=== PATIENT | male | born 1995 | race Caucasian/White ===

== ENCOUNTER 2018-04-26 20:27 | Emergency (ER) | payer BC, SELFPAY ==
[2018-04-26 20:32] VITALS: BP 133/74; PULSE 88; RESP 16; TEMP 37.1; O2SAT 98
--- NOTE | 2018-04-26 20:35 | DI.RAD_ITS ---
SYMPTOM/DIAGNOSIS: MID TIBIA PAIN, FELL, TRAUMA LEFT TIB-FIB: Two views. No bone or joint abnormality is identified. The soft tissues are unremarkable. IMPRESSION: No acute abnormality.
--- NOTE | 2018-04-26 20:45 | ED.GENADUL_ITS ---
Discharge Plan Disposition Patient Disposition: HOME Condition: Good Discharge Details Chief Complaint: Laceration Clinical Impression: Leg wound, left, Blunt trauma of left lower leg ED Provider: Micah Guadalupe Home Meds and New Rx's Prescriptions: No Action No Known Home Meds RF: 0 Discharge Instructions Additional Instructions: keep the wound clean, twice a day or if it becomes dirty gently clean with soap and water if you have redness spreading up or down the leg or yellow/white discharge return to the emergency department. Have the sutures removed in 10 days, return to the emergency department for this Medical Decision Making 22 male fell and hit his left tibia anterior on a corner of a trailer, no head trauma, loc, vomit. Has puncture wound about 0.5cm to mid anterior tibia. Full rom of the knee and ankle and is bearing weight. Will xray to eval for fx and likely suture close if negative xray negative on my read, clsoed with 4 sutures and advised to return in 10 days for removal and sooner if signs of infection develop. will d/c if vrad also agress no acute findings Differential Diagnosis lac, fracture Imaging Data Radiologic Study: Attestation: I personally reviewed and interpreted this imaging study as follows: Imaging: X-Ray My impression: no acute findings HPI General Mode of arrival: ambulatory . Date/Time Provider Initiated Documentation: 04/26/18 20:35 . Limitations to Documentation: no limitations . Information obtained by: patient . History of Present Illness 22 year old M presents to the emergency department with the chief complaint of left leg laceration, described as mild, with intensity rated at 3. and is localized to the left and lower extremity. Patient reports no radiation. Patient started experiencing this hour(s) (1) and it has been constant. No relieving factors improve symptom(s), No exacerbating factors reported . Patient notes no other symptoms.. Patient did receive the following treatments prior to arrival, none Related Data Home Medications Medication Instructions Recorded Confirmed Unknown [No Known Home Meds] 04/26/18 04/26/18 Allergies Allergy/AdvReac Type Severity Reaction Status Date / Time No Known Allergies Allergy Unverified 04/26/18 20:39 General Stated Complaint: Laceration MELO: 4 Review of Systems Review of Systems All systems reviewed & are unremarkable except as noted in HPI and below Constitutional Denies chills, Denies fever(s) and Denies weakness Cardiovascular Denies chest pain and Denies dyspnea Respiratory Denies dyspnea Gastrointestinal Denies abdominal pain, Denies nausea and Denies vomiting Musculoskeletal Denies joint swelling Neurologic Denies weakness Exam Const General: no acute distress Orientation: alert HENMT Head: normal to inspection Ears: external ears normal General nose exam: external nose normal Mouth: moist mucous membranes Eyes General: appearance normal, both eyes and all related structures Neck Neck: normal visual inspection Resp Effort & Inspection: normal respiratory effort and able to speak in complete sentences Cardio Rate: regular rate Skin General skin exam: no rashes or lesions noted Neuro General: alert and oriented x3 Extrem General: full ROM Psych Mental Status: mental status grossly normal Course Vital Signs Temperature 37.1 C 04/26/18 20:32 Pulse 88 04/26/18 20:32 Respiratory Rate 16 04/26/18 20:32 Blood Pressure 133/74 04/26/18 20:32 Pulse Oximetry 98 04/26/18 20:32 Temperature 37.1 C 04/26/18 20:32 Temperature Source Skin 04/26/18 20:32 Pulse 88 04/26/18 20:32 Respiratory Rate 16 04/26/18 20:32 Respiratory Effort 04/26/18 20:38 Blood Pressure 133/74 04/26/18 20:32 Blood Pressure Position Sitting 04/26/18 20:32 Pulse Oximetry 98 04/26/18 20:32 Oxygen Delivery Method Room Air 04/26/18 20:32 Oxygen Flow Rate 0 04/26/18 20:32 Pain Level 3 04/26/18 20:32 Procedures Laceration Laceration 1: Site: lower extremity Side (If applicable): left Size (cm): 0.5 Description: linear Depth: simple, single layer Local Anesthetic: Lidocaine 1% Amount of anesthesia used (mL): 5 Pre-repair: wound explored and irrigated extensively Skin layer closed with: nylon Size (cm): 4-0 Number of sutures: 4 Technique: simple, interrupted
--- NOTE | 2018-04-26 21:25 | DI.VRAD_ITS ---
EXAM: XR Left Tibia and Fibula, 2 Views EXAM DATE/TIME: 04/26/2018 8:36 PM CLINICAL HISTORY: 22 years old, male; Signs and symptoms; Other: Fall, trauma to mid anterior left tib/fib TECHNIQUE: XR Left tibia and fibula 2 views COMPARISON: No relevant prior studies available. FINDINGS: Bones/joints: Two views of the left foreleg reveal no acute fracture or dislocation. The tibia and fibula appear intact. Soft tissues: No gross focal soft tissue swelling is demonstrated. IMPRESSION: No acute fracture or dislocation seen in the left foreleg. Dictated and Authenticated by: Nimesh Cristobal MD. Ordering:BENTON PRINCE MD
[2018-04-26 21:31] VITALS: BP 133/74; PULSE 88; RESP 16; TEMP 37.1; O2SAT 98
== END 2018-04-26 21:29 | disposition home or self-care (01) ==
PROVIDERS: Emergency Provider Emergency Medicine
DX: S81.832A Puncture wound without foreign body, left lower leg, initial encounter (principal); W22.8XXA Striking against or struck by other objects, initial encounter
CPT/HCPCS: 12001; 73590

== ENCOUNTER 2018-11-14 06:17 | Emergency (ER) | payer BC, SELFPAY ==
[2018-11-14 06:21] VITALS: BP 118/64; PULSE 74; RESP 18; TEMP 36.3; O2SAT 98
--- NOTE | 2018-11-14 06:30 | ED.GENADUL_ITS ---
Discharge Plan Disposition Patient Disposition: HOME Condition: Good Discharge Details Chief Complaint: EarProblem Clinical Impression: Otitis externa of both ears Primary Care Provider: Barbara,Local ED Provider: Nikolai Dorantes Meds and New Rx's Prescriptions: New qwchnjyd-jehvwlkeu-FG 3.5-10,000-1 mg/mL-unit/mL-% drops,suspension 4 drp OT Q6H Qty: 10 RF: 0 Discharge Instructions Instructions: Otitis Externa (ED) Additional Instructions: 4 drops in each ear every 6 hours for 1 week. Avoid getting water in your ears. Use Tylenol or Motrin as needed for pain. Return to ED for increasing pain, fever, hearing loss. Follow-up with primary care next week if not better. Referrals: Primary Care Provider [Outside] Medical Decision Making Patient with bilateral otitis externa. TMs are difficult to visualize but look normal. Canals are swollen but not to the point where the ear wick is necessary. Patient prescribed Cortisporin eardrops bilateral ears 4 times a day for 1 week. Return to ED for fever, increasing pain, loss of hearing, neurologic changes, other concerns. HPI General Mode of arrival: ambulatory . Date/Time Provider Initiated Documentation: 11/14/18 06:28 . Limitations to Documentation: no limitations . Information obtained by: patient . HPI Narrative: Patient presents to ED with complaint of bilateral ear pain right greater than left. Noticed it yesterday while he was chewing. This morning it is worse no fever or URI symptoms. He was at [employer] last week swimming pretty much every day. Related Data Home Medications Medication Instructions Recorded Confirmed [id number]-xjaptzkej-RY 4 drp OT Q6H #10 ml 11/14/18 Previous Rx's Medication Instructions Recorded lvatjsjp-yydcmxoqk-[id number] 4 drp OT Q6H #10 ml 11/14/18 Allergies Allergy/AdvReac Type Severity Reaction Status Date / Time No Known Allergies Allergy Unverified 11/14/18 06:20 General Stated Complaint: EarProblem MELO: 4 Review of Systems Constitutional Denies fever(s) ENT Denies ear discharge, Reports otalgia, Denies nasal congestion, Denies post nasal drip and Denies sore throat [facility] Social History Smoking/Tobacco Use Status: Never Alcohol Intake: current Alcohol Intake frequency: a few times a month Drug use: Never Substance use type: does not use Do you feel safe at home: Yes Do you feel safe in your relationship?: Yes Exam Const General: cooperative, comfortable and no acute distress Orientation: alert and oriented x3 HENMT Head: normal to inspection, normocephalic and atraumatic Ears: external ears normal, TM's normal bilaterally and EAC abnormal (bilateral right > left) erythema, edema and EAC tenderness Neuro General: alert, oriented x3, gait normal, no focal motor deficits and CN's II-XI intact bilaterally Course Vital Signs Temperature 97.4 F L 11/14/18 06:21 Pulse 74 11/14/18 06:21 Respiratory Rate 18 11/14/18 06:21 Blood Pressure 118/64 11/14/18 06:21 Pulse Oximetry 98 11/14/18 06:21 Temperature 97.4 F L 11/14/18 06:21 Temperature Source Temporal Artery Scan 11/14/18 06:21 Pulse 74 11/14/18 06:21 Respiratory Rate 18 11/14/18 06:21 Respiratory Effort 11/14/18 06:21 Blood Pressure 118/64 11/14/18 06:21 Blood Pressure Position Sitting 11/14/18 06:21 Pulse Oximetry 98 11/14/18 06:21 Oxygen Delivery Method Room Air 11/14/18 06:21 Oxygen Flow Rate 0 11/14/18 06:21
[2018-11-14] MEDS: Cortisporin OTIC SUSP 10 ML BTL AU (06:40)
== END 2018-11-14 06:47 | disposition home or self-care (01) ==
PROVIDERS: Emergency Provider Emergency Medicine
DX: H60.93 Unspecified otitis externa, bilateral (principal)
CPT/HCPCS: 99283